=== PATIENT | female | born 1975 | race Caucasian/White ===

== ENCOUNTER 2018-01-03 14:51 | Emergency (ER) | payer MEDICAID ==
[~2018-01-03] VITALS: Ht 167.6 cm; Wt 75.0 kg
[2018-01-03 16:33] VITALS: BP 112/63
[2018-01-03] MEDS ORDERED: ACET1TAB12 PO (17:18)
[2018-01-03] MEDS ORDERED: IBUP-1984 PO (17:18)
== END 2018-01-03 17:47 | disposition home or self-care (01) ==
LOC: ER 14:52
DX: S82.891A Other fracture of right lower leg, initial encounter for closed fracture (principal); Z79.899 Other long term (current) drug therapy; X37.1XXA Tornado, initial encounter; Y93.9 Activity, unspecified; Y92.89 Other specified places as the place of occurrence of the external cause; Y99.8 Other external cause status
CPT/HCPCS: 29515; 73610; 99284; A6449

== ENCOUNTER 2018-01-15 11:13 | Emergency (ER) | payer MEDICAID ==
[~2018-01-15] VITALS: Ht 167.6 cm; Wt 77.5 kg
[~2018-01-15 11:13] MED LIST: ACET1TAB12 PO; IBUP-1984 PO
[2018-01-15 12:35] VITALS: BP 130/65
== END 2018-01-15 12:37 | disposition home or self-care (01) ==
LOC: ER 11:13
DX: S82.831D Other fracture of upper and lower end of right fibula, subsequent encounter for closed fracture with routine healing (principal); Z46.89 Encounter for fitting and adjustment of other specified devices; X58.XXXD Exposure to other specified factors, subsequent encounter
CPT/HCPCS: 99281

== ENCOUNTER 2018-04-13 13:46 | Emergency (ER) | payer MEDICAID ==
[~2018-04-13] VITALS: Ht 167.6 cm; Wt 65.0 kg
[~2018-04-13 13:46] MED LIST changes: -IBUP-1984 PO
[2018-04-13] MEDS ORDERED: normal saline 1000ml 1,000 ML IV ONE (15:40)
[2018-04-13] MEDS ORDERED: iohexol 300mg/ml 100ml inj. ONE (16:16)
[2018-04-13 17:44] VITALS: BP 113/63
[2018-04-13] MEDS ORDERED: DOXYCYCLINE 100MG CAPSULE PO STA (18:25)
[2018-04-13] MEDS ORDERED: ondansetron/PF 4mg/2ml inj IV ONE (18:25)
[2018-04-13] MEDS ORDERED: DOXY100C43 PO (19:48)
[2018-04-13] MEDS ORDERED: ONDA4TAB6 PO (19:48)
== END 2018-04-13 19:59 | disposition home or self-care (01) ==
LOC: ER 13:46
DX: K08.89 Other specified disorders of teeth and supporting structures (principal); E04.1 Nontoxic single thyroid nodule; Z79.899 Other long term (current) drug therapy
CPT/HCPCS: 41800; 70487; 96374; 99284; J2405; J7030; Q9967; 96361

== ENCOUNTER 2019-07-23 13:24 | Emergency (ER) | payer MEDICAID ==
[~2019-07-23] VITALS: Ht 167.6 cm; Wt 72.7 kg
[~2019-07-23 13:24] MED LIST changes: +ONDA4TAB6 PO
[2019-07-23 13:30] VITALS: BP 114/67
== END 2019-07-23 13:54 | disposition home or self-care (01) ==
LOC: ER 13:25
DX: J20.9 Acute bronchitis, unspecified (principal); Z79.899 Other long term (current) drug therapy
CPT/HCPCS: 99281; 99282